=== PATIENT | male | born 1975 | race Caucasian/White ===

== ENCOUNTER 2019-06-21 21:43 | Emergency (ER) | payer OTHER ==
[~2019-06-21] VITALS: Ht 180.3 cm; Wt 104.3 kg
[2019-06-21 21:51] VITALS: BP 151/109
== END 2019-06-21 22:30 | disposition left against medical advice (07) ==
LOC: M.ERS 21:43
DX: Z53.21 Procedure and treatment not carried out due to patient leaving prior to being seen by health care provider (principal)